=== PATIENT | male | born 1985 | race Caucasian/White ===

== ENCOUNTER 2019-11-12 16:15 | Emergency (ER) | payer SELFPAY ==
--- NOTE | 2019-11-12 17:55 | EDM.PDOC ---
ED HPI GENERAL MEDICAL PROBLEM - General Chief Complaint: Lower Extremity Injury/Pain Stated Complaint: RIGHT ANKLE INJURY Time Seen by Provider: 11/12/19 16:21 Source of Information: Reports: Patient History Limitations: Reports: No Limitations - History of Present Illness INITIAL COMMENTS - FREE TEXT/NARRATIVE: patient is a 34-year-old male who presents with complaints of right ankle pain and swelling. He states he rolled his ankle inward and then outward yesterday morning when he slipped on ice. He did not land on the extremity. He was seen by EMS after the injury and placed in a splint. He was advised to follow-up in the ER. Patient has been ambulating on the extremity with the splint. He states a couple months that he did roll that same ankle "fairly good "but was not seen by medical care at that time. Denies any numbness or team going in his extremity. Right Feet Pain Score (Numeric/FACES): 10 - Related Data Allergies Allergy/AdvReac Type Severity Reaction Status Date / Time No Known Allergies Allergy Verified 11/12/19 16:24 Home Meds: Home Meds . [No Known Home Meds] 04/27/19 [History] Past Medical History - Past Health History Medical/Surgical History: Denies Medical/Surgical History Endocrine/Metabolic History: Reports: Obesity/BMI 30+ - Past Surgical History Musculoskeletal Surgical History: Reports: Other (See Below) Other Musculoskeletal Surgeries/Procedures:: ankle surgery Social & Family History - Family History Family Medical History: Noncontributory - Tobacco Use Smoking Status *Q: Never Smoker Second Hand Smoke Exposure: No - Caffeine Use Caffeine Use: Reports: Soda - Recreational Drug Use Recreational Drug Use: No - Living Situation & Occupation Living situation: Reports: Single, Alone 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 ED EXAM, GENERAL - Physical Exam Exam: See Below Exam Limited By: No Limitations General Appearance: Alert, No Apparent Distress Respiratory/Chest: No Respiratory Distress, Lungs Clear, Normal Breath Sounds, No Accessory Muscle Use, Chest Non-Tender Cardiovascular: Normal Peripheral Pulses, Regular Rate, Rhythm, No Edema, No Gallop, No JVD, No Murmur, No Rub Extremities: Other (edema to the right foot up to mid calf. He has scattered areas of ecchymosis to the anterior aspect of the ankle as well as the area of the medial malleolus. CMS is intact distal to the injury.) Psychiatric: Normal Affect, Normal Mood Skin Exam: Warm, Dry, Intact, No Rash Course - Vital Signs Last Recorded V/S: Last Vital Signs Temp 99.0 F 11/12/19 16:20 Pulse 97 11/12/19 16:20 Resp 16 11/12/19 16:20 BP 133/88 11/12/19 16:20 Pulse Ox 97 11/12/19 16:20 - Orders/Labs/Meds Orders: Active Orders 24 hr Category Date Time Status Ankle Min 3V Rt [CR] Stat Exams 11/12/19 16:54 Taken Foot Comp Min 3V Rt [CR] Stat Exams 11/12/19 16:54 Taken Tibia Fibula Rt [CR] Stat Exams 11/12/19 16:55 Taken DME for Discharge [COMM] Routine Oth 11/12/19 17:59 Ordered - Re-Assessments/Exams Free Text/Narrative Re-Assessment/Exam: 11/12/19 17:52 x-ray does show comminuted fracture of the fibula. Questionable fracture of the medial malleolus, however unable to to discern if this is an old or new fracture. Patient will be placed in Ortho-Glass splint with instructions for nonweightbearing. He will be provided crutches. He has been advised to follow- up with orthopedics in approximately one week. Discharge instructions as noted. Departure - Departure Time of Disposition: 17:53 Disposition: Home, Self-Care 01 Condition: Fair Clinical Impression: Fracture of fibula - Discharge Information *PRESCRIPTION DRUG MONITORING PROGRAM REVIEWED*: No *COPY OF PRESCRIPTION DRUG MONITORING REPORT IN PATIENT JAZIEL: No Instructions: Fibular Fracture Rehab-SportsMed Referrals: PCP,None [Primary Care Provider] - Ángel Ladd MD [Physician] - Forms: ED Department Discharge, ED Return to Work/School Form Additional Instructions: You were seen in the emergency Department today for pain and swelling to your right ankle after slipping on the ice yesterday. You have a fracture of your fibula as well as a questionable fracture of your medial malleolus. A splint has been applied to your ankle and you have been provided crutches. I recommend that you remain nonweightbearing until instructed otherwise by orthopedics. Call first thing tomorrow morning to schedule an appointment with orthopedist, Dr. Ladd for sometime next week. It is recommended that she elevate the extremity as much as possible. You may ice through the splint for 20 minutes every couple hours. Tylenol or ibuprofen may be used for pain. If he should experience any new or worsening symptoms, please not hesitate to return to the emergency department. Sepsis Event Note - Evaluation Sepsis Screening Result: No Definite Risk - Focused Exam Vital Signs: Vital Signs Temp Pulse Resp BP Pulse Ox 11/12/19 16:20 99.0 F 97 16 133/88 97 Date Exam was Performed: 11/12/19 Time Exam was Performed: 18:06 - My Orders Last 24 Hours: My Active Orders 11/12/19 16:54 Ankle Min 3V Rt [CR] Stat Foot Comp Min 3V Rt [CR] Stat 11/12/19 16:55 Tibia Fibula Rt [CR] Stat 11/12/19 17:59 DME for Discharge [COMM] Routine - Assessment/Plan Last 24 Hours: My Active Orders 11/12/19 16:54 Ankle Min 3V Rt [CR] Stat Foot Comp Min 3V Rt [CR] Stat 11/12/19 16:55 Tibia Fibula Rt [CR] Stat 11/12/19 17:59 DME for Discharge [COMM] Routine
--- NOTE | 2019-11-13 07:38 | CR ---
Right tibia and fibula: AP and lateral views of the right tibia and fibula were obtained. Comparison: No previous study. Distal fibular shaft fracture is noted. Deformity of the medial malleolus is again noted compatible with old injury. Calcification between the talus and medial malleolus compatible with old injury. No proximal fracture or other proximal abnormality is seen. Impression: 1. Distal fibular shaft fracture is noted. 2. Other findings believed to be incidental as noted above. 3. No other acute fracture is seen. Diagnostic code #3 This report was dictated in [place] Standard Time
--- NOTE | 2019-11-13 07:38 | CR ---
Right ankle: Four views of the right ankle were obtained. Comparison: No prior right ankle exam. Comminuted distal fibular shaft fracture is noted. Deformity is noted within the medial malleolus compatible with old injury. Small calcification is noted between the talus and medial malleolus most likely old. No other definite fracture is appreciated. Ankle mortise is slightly asymmetric. Plantar spur is noted. Soft tissue swelling is noted. Impression: 1. Mildly displaced and mildly comminuted distal fibular fracture. 2. Slightly asymmetric ankle mortise. 3. Other findings as noted above believed to be incidental. Diagnostic code #3 This report was dictated in [place] Standard Time
--- NOTE | 2019-11-13 07:38 | CR ---
Right foot: Four views of the right foot were obtained. Comparison: No previous foot exam. Distal fibular shaft fracture is again noted. Plantar spur is present. Cyst is noted within the distal 1st metatarsal head with mild bunion deformity. No acute fracture or dislocation is seen. Soft tissue swelling is noted. Impression: 1. Findings as noted above. 2. No acute bony abnormality is seen within the right foot. 3. Distal fibular shaft fracture is again noted. Diagnostic code #3 This report was dictated in [place] Standard Time
== END 2019-11-12 18:26 | disposition home or self-care (01) ==
LOC: JD.ED 16:15
DX: S82.451A Displaced comminuted fracture of shaft of right fibula, initial encounter for closed fracture (principal); X50.1XXA Overexertion from prolonged static or awkward postures, initial encounter; W00.0XXA Fall on same level due to ice and snow, initial encounter
CPT/HCPCS: 29515; 73590-26-RT; 73590-RT; 73610-26-RT; 73610-RT; 73630-26-RT; 73630-RT; 99283; 99283-25